=== PATIENT | female | born 1980 | race Caucasian/White ===

== ENCOUNTER 2023-08-07 10:24 | Outpatient (OUT) | payer BC, SELFPAY ==
--- NOTE | 2023-08-07 10:38 | MM_ITS ---
Patient Name: JESU GENTILE MR#: [id number] : 1980 Exam Date: 08/07/2023 Ordering Doctor: DR Franko Galindo D.O. RADIOLOGY REPORT PROCEDURE: MM TOMOSYNTHESIS SCREENING BI COMPARISON: MG MAMM SCREEN 3D AURA CAD, 04/21/2022. MG MAMM DIAGNOSTIC 3D AURA CAD, 04/19/2021. MG MAMM SCREEN AURA W CAD, 03/29/2020. INDICATIONS: Screening Calculator Name NCI Breast Cancer Risk Assessment Tool 5 Year Breast Cancer Risk 0.90% Lifetime Breast Cancer Risk 10.70% Personal Breast Cancer No Personal Ovarian Cancer No Treatments None Family Cancers Cousin-paternal with colon cancer at age 49. LOCATION: [facility] BREAST COMPOSITION: The breasts are extremely dense, which lowers the sensitivity of mammography. FINDINGS: DIAGNOSTIC CATEGORY 2--BENIGN FINDING: RIGHT BREAST: No significant suspicious finding. Stable dense asymmetric fibroglandular tissue. No significant change has occurred. LEFT BREAST: No significant suspicious finding. Stable dense asymmetric fibroglandular tissue. No significant change has occurred. RECOMMENDATIONS: ROUTINE MAMMOGRAM AND CLINICAL EVALUATION IN 12 MONTHS. PLEASE NOTE: A NORMAL MAMMOGRAM DOES NOT EXCLUDE THE POSSIBILITY OF BREAST CANCER. A CLINICALLY SUSPICIOUS PALPABLE LUMP SHOULD BE BIOPSIED. Dictated by: Ric Mcclendon M.D. on 08/07/2023 at 12:57 Approved by: Ric Mcclendon M.D. on 08/07/2023 at 13:06
== END 2023-08-07 10:25 | disposition home or self-care (01) ==
LOC: MAMMO 10:28
PROVIDERS: PCP Internal Medicine; Visit Provider Internal Medicine
DX: Z12.31 Encounter for screening mammogram for malignant neoplasm of breast (principal); Z80.0 Family history of malignant neoplasm of digestive organs
CPT/HCPCS: 77063; 77067

== ENCOUNTER 2024-12-08 11:20 | Outpatient (OUT) | payer BC, SELFPAY ==
--- OUTSIDE RECORDS SUMMARY | 2024-12-08 11:23 | XMS_ITS | Clinical Summary ---
Author Organization [facility] Address [address], [address] [place] [address] Care Team Providers Care Manufacturing Area Manager Name Role Phone Franko Galindo DO Primary Care Provider [phone] Allergies Active Allergy Reactions Criticality Noted Date Comments Bee Venom 03/16/2014 Dicyclomine Other (See Comments) 07/27/2023 Penicillins Hives 03/06/2013 Medications No known medications Active Problems Problem Noted Date Diagnosed Date Diverticulitis of colon 07/27/2023 Family history of ischemic heart disease 024 Family history of malignant neoplasm of digestiv e organs 04/24/2022 Cervical high risk HPV (human papillomavirus) te st positive 12/12/201709/22 F 7/9 Wt 8#5 09/22/2014 Termination of 03/09/2014 SAB (spontaneous ) 03/09/2014 Resolved Problems Problem Noted Date Diagnosed Date Resolved Date GBS (group B Streptococcus c arrier), +RV culture, currently 09/10/2014 10/05/2014 Overview (09/10/2014): Treat in labor per protocol Elderly multigravida in third trimester 08/03/2014 06/17/2015 Abnormal maternal glucose to lerance, antepartum 08/03/2014 06/17/2015 Anemia complicating pregnanc y in third trimester 07/08/2014 10/05/2014 Overview (07/08/2014): 07/08/2014 Ferrous Sulfate 325 mg # 30 one po daily started GTT (glucose tolerance test) abnormal 07/08/2014 07/15/2014 Overview (07/15/2014): 07/08/2014 3 hour GTT and Hgb A1c ordered 07/15/2014 wnl Suspected placental problem not found 06/22/2014 06/17/2015 Elderly multigravida in second trimester 05/11/2014 06/17/2015 Low lying placenta without h emorrhage, antepartum 05/11/2014 06/17/2015 Overview (05/27/2014): Repeat scheduled Abnormal Pap smear LSIL (03/09/2014) 04/07/2014 10/05/2014 Overview (04/07/2014): 03/18/2014 Mission. After 20 weeks gestation Elderly multigravida in first trimester 03/16/2014 06/17/2015 Hereditary disease in family possibly affecting fetus, affecting management of mother, antepartum condition or complication 03/16/2014 06/17/2015 AMA (advanced maternal age) multigravida 35+ 4 10/05/2014 Overview (03/09/2014): FOB 42 FHx: factor V Leiden mutation 03/09/2014 10/05/2014 Overview (03/09/2014): Sister Assessment & Plan (03/09/2014 11:37 AM EST): States was tested by family physician will request lab results from office Family History Medical History Relation Name Comments Heart Attack Father Bleeding Prob Sister Jr Factor IV Relation Name Status Comments Brother Alive Father Alive Mother Alive Sister Jr Alive Social History Tobacco Use Types Packs/Day Years Used Date Smoking Tobacco: Former Cigarettes Q uit: 03/09/2013 Smokeless Tobacco: Never Tobacco Cessation:Counseling Given: Yes Alcohol Use Standard Drinks/Week Comments Not Currently 0 (1 standard drink = 0.6 oz pur e alcohol) I don't drink PHQ-2 Answer Date Recorded PHQ-9 Total Score 0 10/05/2023 Food Insecurity Answer Date Recorded Within the past 12 months, y ou worried that your food would run out before you got the money to buy more. 98 07/26/2023 Within the past 12 months, t he food you bought just didn't last and you didn't have money to get more. 98 07/26/2023 Comments No Sex and Gender Information Value Date Recorded Sex Assigned at Not on file Legal Sex Female 3:27 PM EST Gender Identity Not on file Sexual Orientation Not on file Last Filed Vital Signs Vital Sign Reading Time Taken Comments Blood Pressure 116/70 10/26/2023 10:14 AM EDT Pulse 73 09/29/2019 11:35 AM EDT Temperature 36.7 C (98 F) 09/29/2019 11:35 AM EDT Respiratory Rate 18 07/10/2018 8:52 AM EDT Oxygen Saturation 98% 09/22/2014 9:43 AM EDT Inhaled Oxygen Concentration - - Weight 79.4 kg (175 lb) 10/26/2023 10:14 AM EDT Height 170.2 cm (5' 7 ) 10/26/2023 10:14 AM EDT Body Mass Index 27.41 10/26/2023 10:14 AM EDT Plan of Treatment Health Maintenance Due Date Last Done Comments Hepatitis C screen 1997 DTaP/Tdap/Td vaccine (1 - Tdap) 1998 Hepatitis B vaccine (1 of 3 - 19+ 3-dose series) 1998 Breast cancer screen 2019 Lipids 2019 A1C test (Diabetic or Prediabetic) 10/03/2022 10/03/2021, 07/15/2014 Colonoscopy 01/13/2024 Colorectal Cancer Screen 01/13/2024 FIT/FOBT: Average risk 01/13/2024 Fecal-DNA (Cologuard): Average risk 01/13/2024 Sigmoidoscopy/CT colonography 01/13/2024 Depression Screen 10/04/2024 10/05/2023 Flu vaccine (#1) 10/24/2024 COVID-19 Vaccine (2023- season) 2024 Pap smear 10/04/2026 10/05/2023, 09/23, 10/06/2021, Additional history exists Cervical cancer screen 10/04/2028 HPV (without or with Pap) 10/04/20282023, 10/03/2022, 09/29/2019, Additional history exists HIV screen Completed 03/09/2014 Diabetes screen Discontinued 10/03/2021, 06/25, 07/15/2014 HPV vaccine (No Doses Required) Completed Hepatitis A vaccine Aged Out No longe r eligible based on patient's age to complete this topic Hib vaccine Aged Out No longer eligi ble based on patient's age to complete this topic Meningococcal (ACWY) vaccine Aged Out No longer eligible based on patient's age to complete this topic Meningococcal B vaccine Aged Out No l onger eligible based on patient's age to complete this topic Pneumococcal 0-49 years Vaccine Aged Out No longer eligible based on patient's age to complete this topic Polio vaccine Aged Out No longer elig ible based on patient's age to complete this topic Procedures Procedure Name Priority Date/Time Associated Diagnosis Comments HUMAN PAPILLOMAVIRUS (HPV) DNA PROBE THIN PREP HIGH RISK Routine 10/05/2023 12:00 AM EDT AIRPLANE CLEANER CYTOLOGY Routine 10/05/2023 12:00 AM EDT HEMOGLOBIN A1C Routine 10/03/2021 11:32 AM EDT Irregular menses HIV SCREEN Routine 03/09/2014 12:25 PM EST Supervision of high-risk from Last 3 Months or Most Recently Relevant to Health Maintenance Results * Human papillomavirus (HPV) DNA probe thin prep high risk (10/05/2023 12:00 AM EDT) Specimen Description CERVICAL MATERIAL 10/05/2023 12:00 AM EDT [facility] HPV Sample .THIN PREP 10/05/2023 12:00 AM EDT [facility] HPV, Genotype 16 Not Detected Not Detected 10/05/2023 12:00 AM EDT [facility] HPV, Genotype 18 Not Detected Not Detected 10/05/2023 12:00 AM EDT [facility] HPV, High Risk Other Not Detected Not Detected 10/05/2023 12:00 AM EDT [facility] HPV, Interpretation 10/05/2023 12:00 AM EDT [facility] Comment: This test amplifies and detects DNA of 14 high-risk HPV types associated with cervical cancer and its precursor lesions (HPV types 16,18, 31, 33, 35, 39, 45, 51, 52, 56, 58, 59, 66, and 68). Sensitivity may be affected by specimen collection methods, stage of infection, and the presence of interfering substances. Results should be interpreted in conjunction with other available laboratory and clinical data. A negative high-risk HPV result does not exclude the possibility of future cytologic HSIL or underlying CIN2-3 or cancer. This test is intended for medical purposes only and is not valid for the evaluation of suspected sexual abuse or for other forensic purposes. CERVICAL MATERIAL 10/05/2023 Diamante Boss APRN - WATERSHED TENDER HEMATOLOGY [place] [address], [facility] [phone] * AIRPLANE CLEANER Cytology (10/05/2023 12:00 AM EDT) Cytology Report Path Number: [id number] DIAGNOSIS Imaged ThinPrep Pap - Cervical (1 monolayer slide): Specimen Adequacy: Satisfactory for evaluation. -Endocervical/tra nsformation zone component is absent. Descriptive Diagnosis: Negative for intraepithelial lesion or malignancy. Shift in indira suggestive of bacterial vaginosis. Cytotech Screener: EY Electronically Signed Out Tanesha ORTIZ(ASCP) ey/10/12/2023 Procedure/Addendum HPV Procedure Report Date Ordered: 10/08/2023 Status: Signed Out Date Complete: 10/09/2023 By: System Interface Date Reported: 10/09/2023 Sample: HPV Type 16 Result: Not Detected Ref Range: (Not Detected) Sample: HPV Type 18 Result: Not Detected Ref Range: (Not Detected) Sample: Other High Risk HPV Result: Not Detected Ref Range: (Not Detected) Sample: HPV Interp Result: Ref Range: (Not Detected) This test amplifies and detects DNA of 14 high-risk HPV types associated with cervical cancer and its precursor lesions (HPV types 16,18, 31, 33, 35, 39, 45, 51, 52, 56, 58, 59, 66, and 68). Sensitivity may be affected by specimen collection methods, stage of infection, and the presence of interfering substances. Results should be interpreted in conjunction with other available laboratory and clinical data. A negative high-risk HPV result does not exclude the possibility of future cytologic HSIL or underlying CIN2-3 or cancer. This test is intended for medical purposes only and is not valid for the evaluation of suspected sexual abuse or for other forensic purposes. Performed at [facility], [address] [place] [address] . Source of Specimen: A: Imaged ThinPrep Pap - Cervical (1 monolayer slide) HPV Reflex?........... ...........HPV Regardless Clinical History Z01.419 Routine electrical engineering draftsperson exam without abnormal findings Z11.51 Encounter for screening for HPV Processing Lab: [address] [phone] Interpretation performed at [address] [phone] This Pap Test has been evaluated with the assistance of the ThinPrep Pap Test Imaging System. The Pap smear is a screening test primarily for squamous epithelial lesions, which is subject to both false negative and false positive results. Your patient should be reminded to consult you immediately if she experiences any suspicious signs or symptoms, regardless of her Pap smear result. GYNECOLOGIC CYTOLOGY REPORT Patient Name: JESU GENTILE [facility] Rec: [id number] [facility] ANATOMIC PATHOLOGY [address] [place] [phone] [facility] [place] Anywhere to Go CERVICAL MATERIAL 10/05/2023 024 9:50 AM EDT Diamante Boss SUPERVISOR ORDER TAKERS - WATERSHED TENDER PATHOLOGY/CYTOLOGY ORDER [place] [address], [facility] [phone] [facility] * Hemoglobin A1C (10/03/2021 11:32 AM EDT) Hemoglobin A1C 5.7 4.0 - 6.0 % 10/03/2021 11:32 AM EDT [facility] [employer] Estimated Avg Glucose 117 mg/dL 10/03/2021 11:32 AM EDT [facility] Comment: The ADA and AACC recommend providing the estimated average glucose result to permit better patient understanding of their HBA1c result. BLOOD SPECIMEN / Unknown 10/03/2021 11:32 AM EDT 10/03/2021 11:34 AM EDT Diamante Boss SUPERVISOR ORDER TAKERS - WATERSHED TENDER CHEMISTRY ORDERABLES Fin al Result Performing Organization Address City/[facility]/ZIP Co de Phone Number [facility] [address] [place] [address]. [place] [address], [facility] [phone] [phone] * HIV-1 and HIV-2 Antibodies (03/09/2014 12:25 PM EST) Pathologist [facility] HIV 1/2 Antibody NONREACTIVE NR 014 1:38 AM EST [facility] Comment: Interpretation: The presence of antibody to HIV and its association with the potential infectivity, transmission or diagnosis of AIDS has not been established. Furthermore, a 'Non-Reactive' test result does not exclude the possibility of exposure to or infection with HIV. If the above test result is 'Reactive', the Laboratory will order the confirmatory test. Performed at [place] [id number] ([phone] BLOOD SPECIMEN / Unknown 03/09/2014 12:25 PM EST 03/09/2014 12:26 PM EST Paige Garcia SUPERVISOR ORDER TAKERS - CNM IMMUNOLOGY ORDERA BLES Final Result [facility] [address] [place] [address]. [place] [address], [facility] [phone] [facility] from Last 3 Months or Most Recently Relevant to Health Maintenance Insurance Advance Directives * Full Code (Latest Code Status on File) Date Activated Date Inactivated Comments 09/22/2014 9:58 AM 09/23/2014 7:25 PM * Full Code Date Activated Date Inactivated Comments 09/21/2014 9:37 PM 09/22/2014 9:58 AM Care Teams Manufacturing Area Manager Relationship Specialty Start Date End Date Franko Galindo DO [address] [place] [id number] PCP - General 08/23/13
--- OUTSIDE RECORDS SUMMARY | 2024-12-08 11:23 | XMS_ITS | Encounter Summary ---
Author Organization [facility] Address [address], [address] [place] [address] Care Team Providers Care Rib Matcher And Fitter Name Role Phone Franko Galindo DO Primary Care Provider [phone] Encounter Details Date Type Department Care Team (Late st Contact Info) Description 10/06/2014 FollowUp Telephone Encounter [facility] Labor and Delivery [address] [place] [id number] Antoinette Moncada RN Social History Tobacco Use Types Packs/Day Years Used Date Smoking Tobacco: Former Cigarettes Q uit: 03/09/2013 Smokeless Tobacco: Never Alcohol Use Standard Drinks/Week Comments No 0 (1 standard drink = 0.6 oz pur e alcohol) OCC Comments No Sex and Gender Information Value Date Recorded Sex Assigned at Not on file Legal Sex Female 3:27 PM EST Gender Identity Not on file Sexual Orientation Not on file documented as of this encounter Plan of Treatment Not on file documented as of this encounter Visit Diagnoses Not on filedocumented in this encounter Care Teams Rib Matcher And Fitter Relationship Specialty Start Date End Date Franko Galindo DO [address] [place] [id number] PCP - General 08/23/13 documented as of this encounter
--- NOTE | 2024-12-08 11:24 | MM_ITS ---
Patient Name: JESU GENTILE MR#: [id number] : 1980 Exam Date: 12/08/2024 Ordering Doctor: DR MUKESH CERVANTES D.O. RADIOLOGY REPORT PROCEDURE: MM TOMOSYNTHESIS SCREENING BI COMPARISON: MM TOMOSYNTHESIS SCREENING BI, 08/07/2023. MG MAMM SCREEN 3D AURA CAD, 04/21/2022. MG MAMM SCREEN AURA W CAD, 03/29/2020. INDICATIONS: Screening Calculator Name NCI Breast Cancer Risk Assessment Tool 5 Year Breast Cancer Risk 0.90% Lifetime Breast Cancer Risk 10.60% Personal Breast Cancer No Personal Ovarian Cancer No Treatments None Family Cancers Cousin-paternal with colon cancer at age 49. LOCATION: [facility] BREAST COMPOSITION: The breasts are extremely dense, which lowers the sensitivity of mammography. FINDINGS: DIAGNOSTIC CATEGORY 0--INCOMPLETE: NEED ADDITIONAL IMAGING EVALUATION. RIGHT BREAST: No significant suspicious finding. LEFT BREAST: FOCAL CALCIFICATIONS, characterized by upper-outer quadrant posterior. Spot magnification views. RECOMMENDATIONS: ADDITIONAL MAMMOGRAPHIC VIEWS REQUIRED: LEFT BREAST Dictated by: Qamar Langford DO on 12/08/2024 at 12:46 Approved by: Qamar Langford DO on 12/08/2024 at 12:52
== END 2024-12-08 11:21 | disposition home or self-care (01) ==
LOC: MAMMO 11:21
PROVIDERS: PCP Internal Medicine; Visit Provider Internal Medicine
DX: Z12.31 Encounter for screening mammogram for malignant neoplasm of breast (principal); Z80.0 Family history of malignant neoplasm of digestive organs; R92.8 Other abnormal and inconclusive findings on diagnostic imaging of breast
CPT/HCPCS: 77063; 77067